=== PATIENT | female | born 1950 | race Caucasian/White ===

== ENCOUNTER 2017-11-08 07:51 | Emergency (ER) | payer OTHER ==
[~2017-11-08] VITALS: Ht 162.6 cm; Wt 65.4 kg
[2017-11-08 08:10] VITALS: BP 162/105; PULSE 88; RESP 16; TEMP 98.5; O2SAT 99
[2017-11-08] MEDS ORDERED: GABA300C5 PO (08:53)
[2017-11-08] MEDS ORDERED: PRIL20TA2 PO (08:53)
[2017-11-08] MEDS ORDERED: PLAQ200T PO (08:53)
[2017-11-08] MEDS ORDERED: DEXAMETHASONE SOD PHOS 4 MG/ML VIAL IM ONE (09:30)
[2017-11-08] MEDS ORDERED: ORPHENADRINE INJ 60 MG/2 ML AMP IM ONE (09:30)
[2017-11-08] MEDS ORDERED: KETOROLAC TROMETHAMINE 60 MG/2 ML (IM) VIAL IM ONE (09:30)
--- NOTE | 2017-11-08 09:48 | PD ---
HPI Chief Complaint: Musculoskeletal Complaint Time Seen by Provider: 09:11 Travel History International Travel<30 days: No Contact w/Intl Traveler<30days: No Traveled to known affect area: No History of Present Illness HPI 67 year-old otherwise healthy female presents to the emergency room for evaluation of severe left neck and shoulder pain for the past 4-5 days. Patient states she woke up with her pain and thought she may have slept on it wrong. It has been progressively worsening. It radiates from her left lateral neck down her left arm. Pain is severe. She has been taking [id number] medications without significant relief in symptoms. Heat and ice has not been helping. States she cannot get comfortable. The only thing that seems to mildly improve her symptoms as if she raises her left arm above her head. She denies any chest pain, shortness of breath, diaphoresis, nausea, or vomiting. Denies any cardiac history. Denies history of arthritis in her neck. PFSH Past Medical History Arthritis: Yes GERD: Yes Medical other: Yes (restless legs) Tetanus Vaccination: Unknown Influenza Vaccination: No ?: Not Menopausal: Yes Past Surgical History Abdominal Surgery: Yes (2011 gastric bypass) Cholecystectomy: Yes (1996) Social History Alcohol Use: No Tobacco Use: No Substance Use: No Allergies-Medications (Allergen,Severity, Reaction): Coded Allergies: Sulfa (Sulfonamide Antibiotics) (Verified Allergy, Intermediate, hives, 11/08/17) Reported Meds & Prescriptions Reported Meds & Active Scripts Active Reported Prilosec (Omeprazole Magnesium) 20 Mg Tab 1 Cap PO DAILY Plaquenil (Hydroxychloroquine Sulfate) 200 Mg Tab 200 Mg PO DAILY Take with food Gabapentin 300 Mg Cap 300 Mg PO QID Review of Systems Except as stated in HPI: all other systems reviewed are Neg Physical Exam Narrative GENERAL: Well-nourished, well-developed female no acute distress. Afebrile. Ambulatory. SKIN: Focused skin assessment warm/dry. No erythema or ecchymosis. HEAD: Normocephalic. EYES: No scleral icterus. No injection or drainage. NECK: Supple, trachea midline. No JVD or lymphadenopathy. No midline tenderness. CARDIOVASCULAR: Regular rate and rhythm without murmurs, gallops, or rubs. RESPIRATORY: Breath sounds equal bilaterally. No accessory muscle use. BACK: Nontender without obvious deformity. No CVA tenderness. MSK: Mild tenderness to palpation of the left anterior humeral head. Left upper extremity has full range of motion. 2+ radial pulse. Radial, ulnar, median nerves intact. There is mild tenderness to palpation over the left trapezius muscle. Data Data Last Documented VS Vital Signs Date Time Temp Pulse Resp B/P (MAP) Pulse Ox O2 Delivery O2 Flow Rate FiO2 11/08/17 08:48 16 11/08/17 08:10 98.5 88 162/105 (124) 99 Orders Orders Dexamethasone Inj (Decadron Inj) (11/08/17 09:30) Orphenadrine Inj (Norflex Inj) (11/08/17 09:30) Ketorolac Inj (Toradol Inj) (11/08/17 09:30) Electrocardiogram (11/08/17 ) MDM Medical Decision Making Medical Screen Exam Complete: Yes Emergency Medical Condition: Yes Medical Record Reviewed: Yes Differential Diagnosis Cervical strain, osteoarthritis, nerve impingement, cardiac etiology unlikely Narrative Course 67-year-old female presents to the emergency room for evaluation of the nontraumatic left shoulder pain for the past 5 days. Pain is in the left neck, left shoulder, left arm, and radiates into the left lateral chest wall. Improves when she raises her arm above her head. No paresthesias. She completely denies any chest pain or shortness of breath. No cardiac history. EKG shows sinus rhythm with rate of [address] changes. Left upper extremity is neurovascularly intact with 2+ radial pulse and radial, ulnar, and median nerves intact. History and physical exam are consistent with nerve impingement. Patient was given Toradol, Decadron, and Norflex in the emergency room. She will be discharged with prescription for her Robaxin. Told to follow -up with a primary care physician for outpatient imaging of her neck or return for worsening symptoms. She understands and agrees to plan. Diagnosis Primary Impression: Cervical nerve root impingement Referrals: Primary Care Physician Additional Instructions: Rest and drink plenty of fluids. Take Robaxin as directed, as needed for pain. Take ibuprofen with food as directed, as needed for pain. Apply ice to the affected area for 20 minutes at a time, as needed for pain and swelling. Follow-up with a primary care physician. Return to the emergency room for worsening symptoms. Disposition: 01 DISCHARGE HOME Condition: Stable Mariposa Maria Nov 08, 2017 09:48
[2017-11-08] MEDS ORDERED: ROBA750T PO (09:49)
--- NOTE | 2017-11-08 15:19 | EKG ---
Date Performed: 11/08/2017 Time Performed: 09:31:50 PTAGE: 67 years EKG: Sinus rhythm NORMAL ECG NO PREVIOUS TRACING DOCTOR: Cely Garner Interpretating Date/Time 11/08/2017 15:12:58
== END 2017-11-08 10:08 | disposition home or self-care (01) ==
LOC: PHED 07:51 → PHEFT 10:08
DX: G54.2 Cervical root disorders, not elsewhere classified (principal); R07.89 Other chest pain; K21.9 Gastro-esophageal reflux disease without esophagitis; G25.81 Restless legs syndrome; Z98.84 Bariatric surgery status
CPT/HCPCS: 93005; 96372; 99283; J1100; J1885; J2360

== ENCOUNTER → 2018-01-19 | Outpatient (CLI) | payer OTHER ==
[~2018-01-19] MED LIST: *morphine SULFATE 4 MG/ML PERIprocedure ONLY ONE; ESTR0.5T PO; GABA300C5 PO; MEDR5TAB3 PO; OMEP20.6 PO; PLAQ200T PO; PRIL20TA2 PO; ROBA750T PO; TRAM50TA PO
== END ==
LOC: CPRE 10:29
PROVIDERS: ATTEND Neurological Surgery
DX: Z01.812 Encounter for preprocedural laboratory examination (principal); Z01.818 Encounter for other preprocedural examination; M48.02 Spinal stenosis, cervical region; M50.10 Cervical disc disorder with radiculopathy, unspecified cervical region; M50.30 Other cervical disc degeneration, unspecified cervical region
CPT/HCPCS: 87640; 87641; J2270

== ENCOUNTER 2018-01-20 06:01 | Observation (INO) | payer OTHER ==
[~2018-01-20] VITALS: Ht 162.6 cm; Wt 62.5 kg
[~2018-01-20 06:01] MED LIST changes: -*morphine SULFATE 4 MG/ML PERIprocedure ONLY ONE; -TRAM50TA PO
[2018-01-20] MEDS ORDERED: SODIUM CHLORID 0.9% 500 ML IV PRN (06:45)
[2018-01-20] MEDS ORDERED: SODIUM CHLORIDE FLUSH PRN IV FLUSH (06:45)
[2018-01-20] MEDS ORDERED: VANCOMYCIN 1 GM/200 ML PREMIX ON-CALL IV SCH (06:45)
[2018-01-20] MEDS ORDERED: POVIDONE IODINE 5% (ANTISEPSIS KIT) 4 APPLICATIONS EACH NARE PRN (06:45)
[2018-01-20] MEDS ORDERED: CHLORHEXIDINE GLUCONATE 2 % 1 PACK (2 CLOTHS) TOPICAL PRN (06:45)
[2018-01-20] MEDS ORDERED: METOPROLOL TARTRATE 25 MG TAB PO PRN (06:45)
[2018-01-20] MEDS ORDERED: LACTATED RINGER'S 1000 ML IV PRN (06:45)
[2018-01-20] MEDS ORDERED: TRAM50TA PO ×2 (06:48)
[2018-01-20] MEDS ORDERED: THROMBIN (TOPICAL) 5,000 UNIT VIAL ONE (07:01)
[2018-01-20] MEDS ORDERED: GELFOAM SIZE 100 ONE (07:01)
[2018-01-20] MEDS ORDERED: BUPIVACAINE/EPINEPHRINE 0.5% PF 30 ML VIAL ONE (07:01)
[2018-01-20] MEDS ORDERED: VANCOMYCIN HCL 1000 MG VIAL ONE (07:01)
[2018-01-20] MEDS ORDERED: PROPOFOL 500 MG/50 ML INJ 0 ML ONE (07:24)
[2018-01-20] MEDS ORDERED: ACETAMINOPHEN 1000 MG/100 ML 100 ML IV ONE (08:00)
[2018-01-20] MEDS ORDERED: fentaNYL CITRATE 1000 MCG/20 ML VIAL ONE ×2 (08:00→08:01)
[2018-01-20] MEDS ORDERED: PROPOFOL 500 MG/50 ML INJ 100 ML ONE (08:01)
[2018-01-20] MEDS ORDERED: KETAMINE HCL 500 MG/10 ML VIAL ONE (08:01)
[2018-01-20] MEDS ORDERED: MIDAZOLAM HCL 2 MG/2 ML VIAL ONE (08:01)
[2018-01-20] MEDS ORDERED: FAMOTIDINE 20 MG/2 ML VIAL ONE (08:03)
[2018-01-20] MEDS: SODIUM CHLORIDE FLUSH BID IV FLUSH SCH ×2 (09:00→21:00)
[2018-01-20] MEDS ORDERED: DO NOT ADM ANY ANTICOAGULANT DRUGS PRN (11:24)
[2018-01-20] MEDS ORDERED: NS + KCL 20 MEQ INJ 1,000 ML IV SCH (11:56)
[2018-01-20] MEDS ORDERED: MENTHOL LOZENGE BUCCAL PRN (12:00)
[2018-01-20] MEDS ORDERED: ALUMINUM/MAGNESIUM/SIMETH 30 ML CUP PO PRN (12:00)
[2018-01-20] MEDS ORDERED: ACETAMINOPHEN 325 MG TAB PO PRN (12:00)
[2018-01-20] MEDS ORDERED: LACTULOSE SYRUP 20 GM/30 ML CUP PO PRN (12:00)
[2018-01-20] MEDS ORDERED: cloNIDine HCL 0.1 MG TAB PO PRN (12:00)
[2018-01-20] MEDS ORDERED: ACETAMINOPHEN/HYDROcodone 325 MG/10 MG TAB PO PRN ×2 (12:00)
[2018-01-20] MEDS ORDERED: MAGNESIUM HYDROXIDE SUSP 30 ML CUP PO PRN (12:00)
[2018-01-20] MEDS ORDERED: ZOLPIDEM TARTRATE 5 MG TAB PO PRN (12:00)
[2018-01-20] MEDS ORDERED: ONDANSETRON HCL 4 MG/2 ML VIAL IV PUSH PRN (12:00)
[2018-01-20] MEDS ORDERED: SENNOSIDES 8.6 MG TAB PO PRN (12:00)
[2018-01-20] MEDS ORDERED: BISACODYL 10 MG SUPP RECTAL PRN (12:00)
[2018-01-20] MEDS ORDERED: CYCLOBENZAPRINE HCL 10 MG TAB PO PRN (12:00)
[2018-01-20] MEDS ORDERED: RESP: ALBUTEROL 2.5 MG/3 ML NEB (PRN) NEB (12:00)
[2018-01-20] MEDS ORDERED: MORPHINE SULFATE 4 MG/ML INJ IV PUSH PRN (12:00)
[2018-01-20] MEDS ORDERED: PROMETHAZINE INJ 25 MG/ML VIAL IM PRN (12:00)
[2018-01-20] MEDS ORDERED: SODIUM CHLORIDE 0.9% FLUSH 10 ML FLUSH IV FLUSH PRN (12:00)
--- NOTE | 2018-01-20 12:02 | PD.OP ---
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 Sequential compression devices were placed in supine position on a Devaughn table and all pressure points adequately padded. The head secured in a donut and anterior cervical region then shaved and prepped with Chloraprep and sterilely draped with Ioban along with the usual sterile draping. A transverse skin incision on the left side of the neck was then made after infiltrating the skin with 0.5% Marcaine with epinephrine solution extending down through the platysma. At the anterior border of the sternocleidomastoid further dissection was undertaken developing a plane between the carotid sheath laterally and the trachea esophagus medially. The prevertebral fascia was exposed and dissected out. The medial attachments of the longus colli muscles were detached and a self- retaining retractor used for exposure. The C6-7 disc space was localized with a marking the disc space and using lateral fluoroscopy. Seville distraction screws 14 mm length were placed one in the C6 and one in the C7 body interbody distraction and exposure. There was significant disc degeneration with disc height collapse and anterior osteophytes noted at the C6-7 level and the osteophytes were resected with a Leksell and annulus incised with a 15 blade and further dissection undertaken using microtechnique with microscope magnification. Diskectomy was undertaken with pituitaries and the endplates were also decorticated with curettes and drill bit. And more posteriorly there was disk osteophyte complex with a herniated fragment of the disc extending into the left foramen compressing the thecal sac along with a significant uncovertebral joint hypertrophy with foraminal stenosis which was decompressed along with removal of the posterior longitudinal ligaments at both levels. The foramen was decompressed bilaterally using a Kerrison's and palpation with a nerve hook, the exiting nerve roots were felt to be free. The area was then copiously irrigated. I then placed a Peek cage packed with local autograft bone at the C6-7 interspace under fluoroscopy guidance. Seville distraction pins were removed and the holes plugged with Gelfoam for hemostasis. In order to facilitate the fusion and provide stabilization, a Precision spine cervical Uniplate was then placed with a 14 mm variable angle screws in the C6 body and 14 mm fixed angle screw in the C7 body. The plate screw locking mechanism was then engaged. AP and lateral fluoroscopy confirmed good placement of the construct and the retractor was then removed. Muscular bleeding points were cauterized with bipolar cautery and Gelfoam was then also used for hemostasis which was removed. The platysma was then approximated using 3-0 Vicryl interrupted stitches and 3-0 Vicryl subcuticular stitch also placed in an interrupted fashion, and final skin closure was with Mastisol and Steri-Strips. Sterile dressing was then applied. The patient was then extubated and taken to the recovery room. There are no intraoperative complications and all sponge and needle counts were correct at the end of procedure. Estimated blood loss was about 50 cc. The patient did undergo intraoperative neurologic monitoring which remained stable throughout the surgery. Albino Willard MD Jan 20, 2018 12:02
[2018-01-20] MEDS ORDERED: ONDANSETRON HCL 4 MG/2 ML VIAL IV PUSH ONE (12:38)
[2018-01-20] MEDS ORDERED: DEXAMETHASONE SOD PHOS 4 MG/ML VIAL IV ONE (12:38)
[2018-01-20] MEDS ORDERED: PHENYLEPHRINE HCL 10 MG/ML VIAL IV ONE (12:38)
[2018-01-20] MEDS ORDERED: ePHEDrine/NS 25 MG/5 ML SYRINGE IV ONE (12:38)
[2018-01-20] MEDS ORDERED: LIDOCAINE HCL 1% PF 5 ML SYRINGE OTHER ONE (12:38)
[2018-01-20] MEDS ORDERED: PROPOFOL 200 MG/20 ML AMP IV ONE (12:38)
[2018-01-20] MEDS ORDERED: NEOSTIGMINE 5 MG/5 ML SYRINGE IV PUSH ONE (12:38)
[2018-01-20] MEDS ORDERED: ROCURONIUM INJ 50 MG/5 ML SYRINGE IV PUSH ONE (12:38)
[2018-01-20] MEDS ORDERED: LACTATED RINGER'S 1000 ML INJ 1,000 ML IV ONE (12:38)
[2018-01-20] MEDS ORDERED: GLYCOPYRROLATE 1 MG/5 ML SYRINGE IV PUSH ONE (12:38)
[2018-01-20] MEDS ORDERED: ONDANSETRON ODT 4 MG TAB ONE (12:59)
[2018-01-20 14:00] VITALS: BP 124/64; PULSE 61; RESP 18; TEMP 98; O2SAT 97
--- NOTE | 2018-01-20 15:01 | RADRPT ---
EXAM DATE: 01/20/2018 1:25 PM EDT AGE/SEX: 67 years / Female INDICATIONS: Fusion C6,C7 with screws and plate placement. CLINICAL DATA: This is the patient's initial encounter. Patient reports that signs and symptoms have been present for 1 day and indicates a pain score of Nonresponsive. MEDICAL/SURGICAL HISTORY: None. None. COMPARISON: No prior exams available for comparison. FINDINGS: There is an anterior cervical fusion plate at the C6-C7 level with a stabilization device at the C6-C 7 disc level. The hardware appears well placed. There is disc space loss of height and marginal osteo phytes at the C4-C5 and C5-C6 levels. CONCLUSION: There is posterior fusion at the C6-C7 level with the hardware appearing well placed. Electronically signed by: Leo Turner MD 01/20/2018 3:00 PM EDT
[2018-01-20] MEDS: DEXAMETHASONE SOD PHOS 4 MG/ML VIAL IV PUSH SCH ×2 (15:56→21:29)
[2018-01-20 16:00] VITALS: BP 141/65; PULSE 83; RESP 18; TEMP 98; O2SAT 98
[2018-01-20] MEDS: GABAPENTIN 300 MG CAP PO SCH ×2 (18:20→21:28)
[2018-01-20 20:00] VITALS: BP 125/64; PULSE 69; RESP 16; TEMP 98; O2SAT 99
[2018-01-20] MEDS: PANTOPRAZOLE SOD 40 MG DELAYED RELEASE TAB PO SCH (21:28)
[2018-01-20] MEDS: DOCUSATE SODIUM 50 MG/SENNA 8.6 MG TAB PO SCH (21:28)
[2018-01-20] MEDS: SODIUM CHLORIDE 0.9% FLUSH 10 ML FLUSH IV FLUSH SCH (21:29)
[2018-01-21 00:30] VITALS: BP 120/69; PULSE 66; RESP 17; TEMP 98; O2SAT 99
[2018-01-21] MEDS: DEXAMETHASONE SOD PHOS 4 MG/ML VIAL IV PUSH SCH (03:03)
[2018-01-21] MEDS: SODIUM CHLOR 0.9% 1000 ML INJ 1,000 ML IV SCH ×2 (03:03→06:45)
[2018-01-21 07:00] VITALS: BP 120/67; PULSE 62; RESP 16; TEMP 98; O2SAT 100
[2018-01-21 08:45] VITALS: BP 161/71; PULSE 61; RESP 22; TEMP 97.7; O2SAT 98
[2018-01-21] MEDS: DOCUSATE SODIUM 50 MG/SENNA 8.6 MG TAB PO SCH (08:49)
[2018-01-21] MEDS: PANTOPRAZOLE SOD 40 MG DELAYED RELEASE TAB PO SCH (08:49)
[2018-01-21] MEDS: GABAPENTIN 300 MG CAP PO SCH (08:49)
[2018-01-21] MEDS ORDERED: ESTRADIOL 1 MG TAB PO SCH (09:00)
[2018-01-21] MEDS: SODIUM CHLORIDE FLUSH BID IV FLUSH SCH (09:00)
[2018-01-21] MEDS: SODIUM CHLORIDE 0.9% FLUSH 10 ML FLUSH IV FLUSH SCH (09:08)
--- NOTE | 2018-01-21 11:01 | HHI.NSPN ---
History Interval History 67-year-old lady postop day 1 status post anterior C6-7 microdiscectomy and fusion. Relates no dysphagia or hoarseness and is tolerating regular diet. Denies any neck pain or unresolved left upper extremity radiculopathy with some residual numbness. She has been ambulating several times independently and voiding and eating. She is very happy with the results. Review of Systems General: Negative for: fever, chills, insomnia Respiratory: Negative for: shortness of breath, cough, sputum Cardiovascular: Negative for: chest pain, palpitations, orthopnea Gastrointestinal: Negative for: nausea, vomitting, diarrhea, constipation Genitourinary: Negative for: urinary burning, urinary frequency, urinary urgency Exam Results Vital Signs Date Time Temp Pulse Resp B/P (MAP) Pulse Ox O2 Delivery O2 Flow Rate FiO2 01/21/18 08:45 97.7 61 22 161/71 (101) 98 01/20/18 13:24 Nasal Cannula 3 Intake and Output 01/21/18 01/21/18 01/22/18 08:00 16:00 00:00 Intake Total 1850 ml Balance 1850 ml Physical Examination Awake and alert Cranial nerves grossly intact Motor strength 5 out of 5 in the upper and lower extremity Chest clear to incision bilaterally Heart regular rate and rhythm Abdomen soft nontender Incision dressing clean and dry with no drainage noted and no swelling Medical Decision Making Impression and Plan 67-year-old lady postop day #1 status post anterior C6-7 microdiscectomy and fusion with resolved pain and radiculopathy. She will be discharged home and discussed restrictions and wound care. Follow-up in the office as scheduled. Albino Willard MD Jan 21, 2018 11:01
== END 2018-01-21 12:39 | disposition home or self-care (01) ==
LOC: HSDC 06:01 → HSDI 11:59 → N05A 13:54
PROVIDERS: ADMIT Neurological Surgery; ATTEND Neurological Surgery
DX: M50.123 Cervical disc disorder at C6-C7 level with radiculopathy (principal); M25.78 Osteophyte, vertebrae; M48.02 Spinal stenosis, cervical region; K21.9 Gastro-esophageal reflux disease without esophagitis; G25.81 Restless legs syndrome
CPT/HCPCS: 00600; 22551; 22853; 72040; 76000; 94150; 96361; 96365; 96375; 96376; C1713; G0378; J0131; J0690; J1100; J2250; J2370; J2405; J2710; J3010; J3370; J3480; J7030; J7120; L0150